=== PATIENT | male | born 1950 | race Caucasian/White ===

== ENCOUNTER 2016-08-11 14:39 | Emergency (ER) | payer OTHER, BC ==
[~2016-08-11] VITALS: Ht 172.7 cm; Wt 74.8 kg
[~2016-08-11 14:39] MED LIST: ADVIL,NUPRIN,M200 MG PO; ASPIR-LOW81 MG PO; ATORVASTATIN CA40 MG PO; [UNRECOGNIZED DRUG - REMARK]
[2016-08-11 18:12] VITALS: BP 134/98
== END 2016-08-11 18:14 | disposition home or self-care (01) ==
LOC: EME 14:39
PROC: 0HQFXZZ Repair Right Hand Skin, External Approach (ICD-10-PCS; principal; 2016-08-11)
DX: S61.214A Laceration without foreign body of right ring finger without damage to nail, initial encounter (principal); S60.041A Contusion of right ring finger without damage to nail, initial encounter; W23.0XXA Caught, crushed, jammed, or pinched between moving objects, initial encounter; Y99.0 Civilian activity done for income or pay
CPT/HCPCS: 73130; 99281; 99284; S0020